=== PATIENT | male | born 1995 | race Caucasian/White ===

== ENCOUNTER 2021-03-27 21:28 | Emergency (ER) | payer BC ==
[2021-03-27] MEDS ORDERED: PENICILLIN V P500 MG PO (22:32)
== END 2021-03-27 23:07 | disposition home or self-care (01) ==
LOC: ER 21:53
DX: T39.1X1A Poisoning by 4-Aminophenol derivatives, accidental (unintentional), initial encounter (principal); K08.89 Other specified disorders of teeth and supporting structures
CPT/HCPCS: 36415; 80329; 99283